=== PATIENT | female | born 1970 | race Two or more races ===

== ENCOUNTER 2017-05-16 09:45 | Inpatient (IN) | payer BC ==
--- NOTE | 2017-05-10 12:35 | RADRPT ---
PROCEDURE: XR Chest PA and Lateral CLINICAL INDICATION: Preop TECHNIQUE: PA and Lateral views of the chest were obtained. COMPARISON: None. FINDINGS: Cardiovascular: The cardiovascular silhouette appears unremarkable. Lung Spence: The lung spence appear clear with no nodule, alveolar infiltrate, or interstitial promi nence evident. Pleural Spaces: No pneumothorax is identified and no effusion is evident. Osseous Structures: There is a minimal dextroscoliotic curve to the thoracic spine. Soft Tissues: The soft tissues appear unremarkable. IMPRESSION: Unremarkable chest. Physician Ross Date Time Electronically viewed and signed by Physician Ross on 05/10/2017 12:34 RH/
[2017-05-15 09:49] VITALS: BMI 24.8
[~2017-05-16] VITALS: Ht 157.5 cm; Wt 63.6 kg
[2017-06-06 10:52] LABS: BASOPHILS % 0.4 % (0.0-2.0); EOSINOPHILS # 0.1 10^3/ul (0.0-0.5); EOSINOPHILS % 2.2 % (0.0-7.0); HEMATOCRIT 40.3 % (37.0-47.0); HEMOGLOBIN 12.8 g/dl (12.0-16.0); LYMPHOCYTES # 1.1 10^3/ul (0.8-2.9); MEAN CORPUSCULAR HEMOGLOBIN 30.4 pg (29.0-33.0); MEAN CORPUSCULAR HGB CONC 31.8 g/dl (32.0-37.0); MEAN CORPUSCULAR VOLUME 95.7 fl (82.0-101.0); MEAN PLATELET VOLUME 11.1 fl (7.4-10.4); MONOCYTE # 0.6 10^3/ul (0.3-0.9); MONOCYTES % 12.4 % (0.0-11.0); NEUTROPHIL # 3.2 10^3/ul (1.6-7.5); NEUTROPHILS % 63.6 % (39.0-77.0); PLATELET COUNT 195 10^3/UL (140-415); RED BLOOD COUNT 4.21 10^6/ul (4.20-5.40)
[2017-06-06 11:10] LABS: ALBUMIN 4.3 g/dl (3.3-4.9); ALBUMIN/GLOBULIN RATIO 1.53; BILIRUBIN,INDIRECT 0.3 mg/dl (0-1.1); BILIRUBIN,TOTAL 0.3 mg/dl (0.2-1.3); CALCIUM 9.4 mg/dl (8.4-10.2); CREATININE 0.91 mg/dl (0.44-1.00); POTASSIUM 3.7 mmol/L (3.5-5.1); TOTAL PROTEIN 7.1 g/dl (6.1-8.1)
[2017-06-06 11:52] LABS: INR 0.97; PROTIME 12.9 Sec (12.2-14.2)
[2017-06-06 11:53] LABS: PARTIAL THROMBOPLASTIN TIME 32.4 Sec (25.0-35.0)
[2017-06-06 12:31] VITALS: Ht 157.5 cm; Wt 63.6 kg
[2017-06-11] VITALS (20 sets, daily range): BP systolic 92–116; BP diastolic 52–75; PULSE 73–102; RESP 13–21
[2017-06-11] MEDS ORDERED: LACTATED RINGER'S 1,000 ML IV* SCH (06:00)
[2017-06-11] MEDS ORDERED: CEFAZOLIN 2 GM/50 ML (PMX) 50 ML IVPB SCH (06:00)
[2017-06-11] MEDS ORDERED: GABA300S PO (06:36)
[2017-06-11] MEDS ORDERED: LEVO0.5P MC (06:36)
[2017-06-11] MEDS ORDERED: [UNRECOGNIZED DRUG - CODE] PO (06:36)
[2017-06-11] MEDS ORDERED: LITH300T5 PO (06:36)
[2017-06-11] MEDS ORDERED: FENTAnyl 50 MCG/ML VIAL ONE ×2 (06:43→12:20)
[2017-06-11] MEDS ORDERED: ROCURONIUM 50 MG INJ ONE ×2 (06:43→10:52)
[2017-06-11] MEDS ORDERED: PROPOFOL 100 ML ONE ×3 (06:43→10:52)
[2017-06-11] MEDS ORDERED: MIDAZOLAM 1 MG/ML 2 ML INJ ONE (06:43)
--- NOTE | 2017-06-11 07:06 | HPN ---
Date/Time of Note Date/Time of Note DATE: 06/11/17 TIME: 07:06 Interval H&P Admission Note Pt. seen H&P reviewed: No system changes ARNOL HIRSCH MD Jun 11, 2017 07:06
[2017-06-11] MEDS ORDERED: CEFAZOLIN 1 GM INJ ONE ×2 (07:07→10:52)
[2017-06-11] MEDS ORDERED: THROMBIN 5000 UNIT VIAL ONE (07:08)
[2017-06-11] MEDS ORDERED: GELATIN SIZE 100 SPONGE ONE (07:08)
[2017-06-11] MEDS ORDERED: HEPARIN 1000 UNITS/ML 10 ML INJ ONE (07:08)
[2017-06-11] MEDS ORDERED: BUPIVACAINE 0.25% (MPF) 30 ML INJ ONE (07:08)
[2017-06-11] MEDS ORDERED: FUROSEMIDE 20 MG INJ ONE (07:09)
[2017-06-11] MEDS ORDERED: LABETALOL HCL 20MG INJ ONE ×2 (08:02→08:06)
[2017-06-11] MEDS ORDERED: hydrALAzine 20 MG INJ ONE (08:07)
[2017-06-11] MEDS ORDERED: PHENYLephrine (100 MCG/ML) 5ML SYG ONE ×2 (08:12→09:58)
[2017-06-11] MEDS ORDERED: ONDANSETRON 4 MG INJ ONE (09:58)
[2017-06-11] MEDS ORDERED: METOCLOPRAMIDE 10 MG INJ ONE (09:58)
[2017-06-11] MEDS ORDERED: DEXAMETHASONE 4 MG/ML 1 ML INJ ONE (09:58)
[2017-06-11] MEDS ORDERED: SUGAMMADEX SODIUM 200 MG/2 ML VIAL IV ONE (09:58)
[2017-06-11] MEDS ORDERED: LABETALOL HCL 20MG INJ IV PRN (10:00)
[2017-06-11] MEDS ORDERED: METOCLOPRAMIDE 10 MG INJ IV PRN (10:00)
[2017-06-11] MEDS ORDERED: HYDROmorphONE (0.2 MG/ML) 10ML SYG IV PRN ×2 (10:00)
[2017-06-11] MEDS ORDERED: EPHEDrine SULFATE 50 MG/5 ML SYG IV PRN (10:00)
[2017-06-11] MEDS ORDERED: FENTAnyl 50 MCG/ML VIAL IV PRN ×3 (10:00)
[2017-06-11] MEDS ORDERED: DIPHENHYDRAMINE 50 MG INJ IV PRN (10:00)
[2017-06-11] MEDS ORDERED: ONDANSETRON 4 MG INJ IV PRN (10:00)
[2017-06-11] MEDS ORDERED: MEPERIDINE 25 MG INJ IV PRN (10:00)
[2017-06-11] MEDS ORDERED: morphine (1 MG/ML) 10ML SYRINGE IV PRN ×3 (10:00)
--- NOTE | 2017-06-11 12:53 | RADRPT ---
PROCEDURE: Intraoperative imaging of the lumbar spine with fluoroscopy. CLINICAL INDICATION: Back pain. Intraoperative. TECHNIQUE: 6 images of the lumbar spine were obtained in the operating room with an image intensif ier. No radiologist was in attendance. Fluoroscopy time is 101.2 seconds. COMPARISON: No prior study is available for comparison. FINDINGS: For the purposes of this report, the last apparent true disc level is considered to be L5-S1. Based on this, images demonstrate posterior fusion with pedicle screws and connecting rods at L4-5. An in tervertebral cage is also present at L4-5. IMPRESSION: 1. Intraoperative imaging of the lumbar spine. RPTAT: QQ .Jason Zepeda MD, MD Date Time Electronically viewed and signed by .Jason Zepeda MD, on 06/11/2017 12:53 .R/
[2017-06-11] MEDS ORDERED: HYDROmorphONE 0.2 MG/ML PCA ONE (12:54)
[2017-06-11] MEDS: HYDROmorphONE (0.2 MG/ML) 10ML SYG IV PRN ×3 (12:58→13:12)
[2017-06-11] MEDS ORDERED: HYDROCODONE/APAP (5/325) TAB PO PRN ×2 (13:00)
[2017-06-11] MEDS ORDERED: DIAZEPAM 5 MG/ML SYG IM PRN (13:00)
[2017-06-11] MEDS ORDERED: NACL 0.9% 3 ML SYG IV SCH (13:00)
[2017-06-11] MEDS ORDERED: PROCHLORPERAZINE 10 MG TAB PO PRN (13:00)
[2017-06-11] MEDS ORDERED: CEPASTAT LOZENGE MT PRN (13:00)
[2017-06-11] MEDS ORDERED: ZOLPIDEM 5 MG TAB PO PRN (13:00)
[2017-06-11] MEDS ORDERED: ACETAMINOPHEN 325 MG TAB PO PRN (13:00)
[2017-06-11] MEDS ORDERED: BETHANECHOL 25 MG TAB PO PRN (13:00)
[2017-06-11] MEDS ORDERED: DIPHENHYDRAMINE 50 MG CAP PO PRN (13:00)
[2017-06-11] MEDS ORDERED: NALOXONE (0.4 MG/ML) INJ IV PRN (13:00)
[2017-06-11] MEDS ORDERED: TRIMETHOBENZAMIDE 100 MG/ML VIAL IM PRN (13:00)
[2017-06-11] MEDS ORDERED: AL HYDROX/MG HYDROX/SIMETH 30 ML CUP PO PRN (13:00)
[2017-06-11 13:02] LABS: ADD UMIC YES; UR ASCORBIC ACID NEGATIVE (NEGATIVE); UR BILIRUBIN (Dip) NEGATIVE (NEGATIVE); UR BLOOD (Dip) 1+ mg/dL (NEGATIVE); UR CLARITY CLEAR (CLEAR); UR COLOR COLORLESS (YELLOW); UR GLUCOSE (Dip) NEGATIVE (NEGATIVE); UR KETONES (Dip) NEGATIVE (NEGATIVE); UR LEUKOCYTE ESTERASE (Dip) NEGATIVE Leu/ul (NEGATIVE); UR NITRITE (Dip) NEGATIVE (NEGATIVE); UR RBC 1 /HPF (0-5); UR SPECIFIC GRAVITY (Dip) 1.011 (1.003-1.030); UR TOTAL PROTEIN (Dip) NEGATIVE (NEGATIVE); UR UROBILINOGEN (Dip) NEGATIVE (NEGATIVE)
--- NOTE | 2017-06-11 13:06 | SIPON ---
Date/Time of Note Date/Time of Note DATE: 06/11/17 TIME: 13:00 Operative Report Preoperative Diagnosis Spinal Stenosis L4-5 with intra spinal facet cysts Postoperative Diagnosis same Operation/Procedure Performed Central decompressive laminectomy at L4 Partial central decompressive laminectomy at L5 (superiorly) Transforaminal lumbar interbody fusion L4-5 with bilateral pedicle screws at L4 and L5 and an interbody cage Surgeon see signature line lead assistant manager Vince Shen Second assist: TREMAINE MCKEON Anesthesia: general Estimated blood loss: 150 - 200 ml's Transfusion Required 150 cc Cellsaver blood replaced Specimen Facet cysts Disk material L4-5 Grafts/Implants Local bone graft, MAPP3 10 mmm lordotic PEEK cage Bilateral pedicle screws and rods at L4 and L5 Complications none ARNOL HIRSCH MD Jun 11, 2017 13:06
[2017-06-11] MEDS: HYDROmorphONE 0.2 MG/ML PCA IV SCH (13:10)
--- NOTE | 2017-06-11 13:58 | OPR ---
DATE OF OPERATION: 06/11/2017 PREOPERATIVE DIAGNOSES: Severe spinal stenosis at L4 to 5 with intraspinal cyst and severe degenerative joint disease bilaterally. POSTOPERATIVE DIAGNOSES: Severe spinal stenosis at L4 to 5 with intraspinal cyst and severe degenerative joint disease bilaterally. OPERATION AND PROCEDURES: 1. Transforaminal lumbar interbody fusion L4 to 5. 2. Pedicle screw and rods bilaterally L4 to 5. 3. Central decompressive laminectomy at L4. 4. Partial central decompression laminectomy at L5 (superiorly). 5. Placement of interbody cage at L4 to 5 with local bone graft and Map3 synthetic bone graft substitute. 6. Cosmetic wound closure (7 cm). 7. AP and lateral intraoperative fluoroscopy. 8. Intraoperative nerve monitoring (4 hours). SURGEON: Buzz Weinstein MD NET COORDINATOR: Sebastian Marquez MD. SECOND NET COORDINATOR: Julisa Norton PA-C. ANESTHESIA: General endotracheal. ANESTHESIOLOGIST: Dr. Robert ESTIMATED BLOOD LOSS: 300 mL -- 150 mL of Cell Saver returned to the patient. COMPLICATIONS: None. PERTINENT HISTORY AND PHYSICAL: This is a 47-year-old female with severe back and bilateral leg pain, right greater than left which was unrelieved by conservative management. She has undergone a number of diagnostic studies including an MRI of the lumbar spine, which demonstrated severe stenosis at L4 to 5 secondary to intraspinal cyst at that level along with bilateral degenerative facet disease at that level. Treatment options were discussed with the patient, she elected to proceed with surgery. OPERATIVE FINDINGS AT SURGERY: Multiple intraspinal cysts were confirmed. Baseline intraoperative nerve monitoring revealed a decrease in the L4 potential on the left of 20%, the L4 potential on the right of 50%, the L5 potentials bilaterally of 40%. These all returned to normal at the completion of surgery. OPERATIVE PROCEDURE: With the patient in supine position after satisfactory induction of general endotracheal anesthesia by Dr. Robert, the patient was turned to the prone position onto the radiolucent Frederick frame atop the OSI fluoroscopic table. All pressure points were carefully padded. The back was prepped and draped in usual sterile fashion. Athrombic pumps were applied to the legs below the knees to prevent venous stasis during and after the procedure. An indwelling Rodriguez catheter was also placed preoperatively to facilitate bladder drainage during and after the surgery. Two spinal needles were placed next to what was felt to be the L4 and L5 spinous processes, lateral roentgenogram was taken which confirmed anatomic localization. A 7-cm incision was carried out midline from L3 to L5 through skin and subcutaneous tissue to deep fascia after skin was infiltrated with 0.25% Marcaine without epinephrine for postoperative analgesia. Superficial retractors were placed and hemostasis secured with electrocautery. Throughout the procedure, copious amounts of antibacterial irrigating solution used to periodically irrigate the wound. The fascia was incised in midline with a hot knife and a bilateral subperiosteal dissection carried out at L4 and L5. Deep retractors were placed and deep hemostasis secured with electrocautery. A second intraoperative radiograph was taken with Tha clamps placed in what was felt to be the spinous process of L3 and L4. This was confirmed with second x-ray. A central decompressive laminectomy at L4 was then carried out using a Zachery right- angle bone rongeur, Leksell rongeur, Kerrison punches and curettes. Ligamentum flavum was incised with sharp dissection. The operating microscope was then moved into place. A subtotal medial facetectomy at L4 to 5 bilaterally was carried out with a small hand osteotome, mallet, Kerrison punches and curettes. The L5 root on the right was then mobilized medially and protected with Charlee' Ramila nerve retractor using microdissection technique. A 15 blade knife used to cut a rectangular window in the annulus and posterior longitudinal ligament and multiple degenerative disk fragments were harvested with pituitary rongeurs and sent to laboratory for pathologic study. Additional fragments were harvested using ring curettes and Ariella curettes. A thorough search of the floor of the canal was made with an arthroscopic probe. No additional fragments were encountered. The 7, 8, 9 10 and 11 mm reamers were then inserted into the disk space and additional disk material was removed. The 10- mm trial appeared to be the correct trial for this disk space after trying the 6 , 7, 8 and 9 mm. A 10 mm lordotic PEEK cage was then filled with Map3 bone graft substitute and inserted into the L4 to 5 disk space after multiple morselized fragments of bone from the facet joint and spinous process were packed into the anterior aspect of the disk space. The position of the cage was confirmed on AP and lateral fluoroscopic imaging. With this having been accomplished, the pedicle screws were then placed at L4 and L5 bilaterally in the usual fashion using Lenke probe and AP and lateral fluoroscopic guidance. All 4 screws were 5.5 mm wide x 40 mm long variable angle RTI screws. They were then connected with 50 mm lordotic rods and secured with the factory torque wrench. Prior to final tightening of the L4 locking caps, the construct was put under compression bilaterally. Final AP and lateral fluoroscopic images were taken, which confirmed appropriate positioning of the hardware and interbody cage. Prior to placement of the lordotic rods, each of the screws was tested for electrical isolation to 20 microamps of current. The epidural hemostasis was secured with bipolar electrocautery on low setting. The anesthesiologist then asked to perform a Valsalva maneuver at 40 mmHg and no spinal fluid leakage was noted. The wound was then closed in layers over 2 medium Hemovac drains, one below the fascia and one above the fascia using #1 Vicryl Stratafix sutures in deep paralumbar musculature and deep fascia of the back, 2-0 Stratafix sutures in subQ tissue and a 4-0 Vicryl subcuticular cosmetic closing suture on the skin. Dermabond and sterile compressive dressings were applied. The patient having tolerated procedure well, was then turned to the supine position onto her bed and extubated by Dr. Robert. She was transported to recovery room in satisfactory condition. At the conclusion of the procedure, sponge, instrument and needle counts were all correct. NEED FOR CAR STORER: During this spinal surgical procedure, my culture media laboratory assistant was used to retract and protect the spinal nerves and dural sac. My culture media laboratory assistant also employed the suction catheters to evacuate blood from the surgical field to improve visualization of the neural structures. The culture media laboratory assistant was medically necessary to facilitate the completion of the surgery in a safe and expeditious manner. State of [place] regulations, as well as hospital bylaws, preclude the use of non-licensed health care personnel such as operating room technicians, to perform these functions. Throughout the procedure, neural monitoring was carried out by Partly including EMG, SSEP and MEP monitoring of the L3, L4 , L5 and S1 nerve roots bilaterally along with spinal cord potentials. These were interpreted by a neurologist employed by [employer] Dictated By: BUZZ HADDAD/MARLENE Conf#: [id number] [facility]#: [id number] CC: JENNIFER PANDEY MD; SEBASTIAN MARQUEZ MD;*EndCC* MTDD
[2017-06-11] MEDS: DEXTROSE 5%-0.45% NACL 1,000 ML IV SCH ×2 (14:04→23:08)
[2017-06-11] MEDS: DIAZEPAM 5 MG TAB PO PRN (16:08)
--- NOTE | 2017-06-11 17:07 | CONS ---
DATE OF ADMISSION: 06/11/2017 DATE OF CONSULTATION: 06/11/2017 POSTOPERATIVE INTERNAL MEDICINE CONSULTATION REASON FOR CONSULTATION: Consultation requested by Dr. Buzz Hirsch for medical evaluation and followup of a 47-year-old woman who just underwent lumbar spine surgery. Thank you, Dr. Hirsch, for allowing us to participate in the care of this patient. HISTORY OF PRESENT ILLNESS: Lisa Mattson, a 47-year-old woman. This will be her first major surgery, had breast augmentation in the past; however, other than that has had no surgical procedures. Of note, has been generally healthy. MEDICATIONS: Currently taking the followin. Gabapentin 300 b.i.d. 2. [place] carbonate 300 mg b.i.d. 3. Quetiapine fumarate 400 mg extended release 24 hours before dinner. 4. Levothyroxine 75 mcg per day. ALLERGIES: SHE IS NOT ALLERGIC TO ANY MEDICATIONS. General health is described as being good. SOCIAL HISTORY: The patient is , has no children. FAMILY HISTORY: Knows of no significant family history of diabetes, cancer, heart disease, etc. REVIEW OF SYSTEMS: HEENT: Unremarkable. CARDIORESPIRATORY: No chest pain or shortness breath. GASTROINTESTINAL: No melena, hematemesis. GENITOURINARY: No urgency, frequency. MUSCULOSKELETAL: Positive for back pain, spinal stenosis for which she has had recurrent surgery. PHYSICAL EXAMINATION: VITAL SIGNS: Postoperatively revealed blood pressure 116/59, pulse 98 and regular, respirations 20, temperature 97.7 and O2 sat 96% on room air. HEENT: Unremarkable. LUNGS: Clear. HEART: Reveals regular exam. ABDOMEN: Soft, good bowel sounds were noted. EXTREMITIES: Unremarkable. IMPRESSION: 1. Status post lumbar spine surgery. 2. Hypothyroidism. 3. Stable health. DISCUSSION: The patient's vital signs and postop, patient is quite alert, was seen in her room after she was transferred to the floor. No complaints at this particular point in time, as far as the patient is concerned. Plan is to follow her along with you and monitor her general medical conditions, her preop medicines have been reinitiated. Thank you again, Dr. Hirsch, for allowing us to participate in the care of this patient. Dictated By: JENNIFER JOYNER/MARLENE Conf#: [id number] DID#: [id number] CC: BUZZ HIRSCH MD;*EndCC* MTDD
[2017-06-11] MEDS: CEFAZOLIN 1 GM/50 ML (PMX) 50 ML IVPB SCH ×2 (17:33→23:08)
[2017-06-11] MEDS: ONDANSETRON 4 MG INJ IV PRN (18:54)
[2017-06-11] MEDS: LITHIUM CARBONATE 300 MG CAP PO SCH ×2 (20:12→21:20)
[2017-06-11] MEDS: QUETIAPINE 400 MG XX SCH ×2 (20:13→21:20)
[2017-06-11] MEDS: GABAPENTIN 100 MG CAP PO SCH (21:20)
[2017-06-11] MEDS: RANITIDINE 150 MG TAB PO SCH (21:20)
[2017-06-12 00:34] VITALS: BP 108/59; RESP 18
[2017-06-12] MEDS: HYDROmorphONE 0.2 MG/ML PCA IV SCH (01:04)
[2017-06-12 01:59] VITALS: BP 104/70; RESP 20
[2017-06-12 05:25] LABS: HEMOGLOBIN 9.1 g/dl (12.0-16.0)
[2017-06-12] MEDS: CEFAZOLIN 1 GM/50 ML (PMX) 50 ML IVPB SCH ×2 (05:45→12:00)
[2017-06-12 05:56] VITALS: BP 101/64; PULSE 82; RESP 17
[2017-06-12] MEDS ORDERED: LEVOTHYROXINE 75 MCG TAB PO SCH (06:00)
[2017-06-12 06:08] LABS: CALCIUM 8.3 mg/dl (8.4-10.2); CREATININE 0.67 mg/dl (0.44-1.00); POTASSIUM 3.9 mmol/L (3.5-5.1)
--- NOTE | 2017-06-12 07:16 | PN ---
Date/Time of Note Date/Time of Note DATE: 06/12/17 TIME: 07:12 Assessment/Plan Lines/Catheters IV Catheter Type (from Nrsg): Peripheral IV Rodriguez in Place (from Nrsg): Yes Subjective 24 Hr Interval Summary Patient is postop day #1 from lumbar decompression and fusion at L4-5. She is resting comfortably in bed, she has been up ambulating. Pain is well controlled. Vital signs are stable, her hemoglobin this morning is 9.1. Neurovascular structures are intact distally. Her Hemovac drain overnight was 80 cc and this will be monitored. 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 We will switch her over to pills for pain control. Exam/Review of Systems Vital Signs Vitals Vital Signs Date Time Temp Pulse Resp B/P Pulse Ox O2 Delivery O2 Flow Rate FiO2 06/12/17 05:56 98.9 82 17 101/64 95 Nasal Cannula 2.0 Intake and Output 06/11/17 06/11/17 06/12/17 15:00 23:00 07:00 Intake Total 2350 ml 350 ml 1900 ml Output Total 1380 ml 160 ml 2580 ml Balance 970 ml 190 ml -680 ml Results Result Diagram: 06/12/17 0447 06/12/17 0447 TREMAINE MCKEON Jun 12, 2017 07:15
[2017-06-12] MEDS: DIAZEPAM 5 MG TAB PO PRN (07:21)
[2017-06-12] MEDS ORDERED: OXYCODONE/ACETAMINOPHEN (10/325) TAB PO PRN (07:30)
[2017-06-12] MEDS ORDERED: BETHANECHOL 25 MG TAB PO PRN (08:00)
--- NOTE | 2017-06-12 08:06 | CONS ---
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 not holding her Objective Vital Signs Date Time Temp Pulse Resp B/P Pulse Ox O2 Delivery O2 Flow Rate FiO2 06/12/17 05:56 98.9 82 17 101/64 95 Nasal Cannula 2.0 Intake and Output 06/11/17 06/11/17 06/12/17 15:00 23:00 07:00 Intake Total 2350 ml 350 ml 1900 ml Output Total 1380 ml 160 ml 2580 ml Balance 970 ml 190 ml -680 ml Exam vss heent negative heart regular rhythm abdomen soft Results/Medications Result Diagram: 06/12/17 0447 06/12/17 0447 Results 24 hrs Laboratory Tests Test 06/12/17 04:47 Hemoglobin 9.1 #L Hematocrit 28.0 #L Sodium Level 140 Potassium Level 3.9 Chloride Level 108 Carbon Dioxide Level 27 Anion Gap 9 Blood Urea Nitrogen 6 L Creatinine 0.67 Glucose Level 132 Calcium Level 8.3 L Medications Current Medications Dextrose/Sodium Chloride 1,000 ml @ 100 mls/hr Q10H IV Last administered on 23:08; Admin Dose 100 MLS/HR; Start 06/11/17 at 12:56 Cefazolin Sodium (Ancef 1 Gm/50 ml (Pmx)) 50 ml @ 100 mls/hr Q6 IVPB Last administered on 06/12/17 05:45; Admin Dose 100 MLS/HR; Start 06/11/17 at 18: 00; Stop 06/12/17 at 12:29 Zolpidem Tartrate (Ambien) 5 mg HS PRN PO INSOMNIA; Start 06/11/17 at 13:00 Prochlorperazine (Compazine) 10 mg Q4H PRN PO NAUSEA AND/OR VOMITING; Start at 13:00 Trimethobenzamide HCl (Tigan) 200 mg Q4H PRN IM NAUSEA AND/OR VOMITING Last administered on 06/11/17 22:40; Admin Dose 200 MG; Start 06/11/17 at 13:00 Ondansetron HCl (Zofran Inj) 4 mg Q6H PRN IV NAUSEA AND/OR VOMITING Last administered on 06/11/17 18:54; Admin Dose 4 MG; Start 06/11/17 at 13:00 Al Hydrox/Mg Hydrox/Simethicone (Mag-Al Plus) 15 ml Q4H PRN PO CONSTIPATION; Start 06/11/17 at 13:00 Docusate Sodium (Colace) 100 mg BID PO ; Start 06/12/17 at 09:00 Acetaminophen (Tylenol Tab) 650 mg Q4H PRN PO TEMP GREATER THAN 101F OR URIOSTEGUI; Start 06/11/17 at 13:00 Ascorbic Acid (Vitamin C) 1,000 mg BID PO ; Start 06/12/17 at 09:00 Ferrous Sulfate (Ferrous Sulfate (Ec)) 325 mg TID PO ; Start 06/12/17 at 09:00 Ranitidine HCl (Zantac) 150 mg BID PO Last administered on 06/11/17 21:20; Admin Dose 150 MG; Start 06/11/17 at 21:00 Diazepam (Valium) 5 mg Q4H PRN PO MUSCLE SPASMS Last administered on 07:21; Admin Dose 5 MG; Start 06/11/17 at 13:00 Diazepam (Valium) 5 mg Q4H PRN IM MUSCLE SPASMS; Start 06/11/17 at 13:00 Phenol (Cepastat Lozenge) 1 lozenge PRN PRN MT SORE THROAT Last administered on 06/12/17 05:57; Admin Dose 1 LOZENGE; Start 06/11/17 at 13:00 Bethanechol Chloride (Urecholine) 25 mg PRN PRN PO UNABLE TO VOID; Start 06/11 at 13:00 Diphenhydramine HCl (Benadryl) 50 mg Q6H PRN PO PRURITUS; Start 06/11/17 at 13 :00 Hydromorphone HCl (Dilaudid WIRE STEWARD) Q4PCA IV Last administered on 06/12/17 01: 04; Admin Dose 6 MG; Start 06/11/17 at 13:00 Naloxone HCl (Narcan) 0.2 mg Q2M PRN IV RR 8 BREATHS/MIN OR LESS; Start at 13:00 Pe Ell Carbonate (Pe Ell Carbonate) 300 mg BID PO Last administered on 21:20; Admin Dose 300 MG; Start 06/11/17 at 21:00 Gabapentin (Neurontin) 100 mg BID PO Last administered on 06/11/17 21:20; Admin Dose 100 MG; Start 06/11/17 at 21:00 Levothyroxine Sodium (Synthroid) 75 mcg DAILY@06 PO Last administered on 05:45; Admin Dose 75 MCG; Start 06/12/17 at 06:00 Bethanechol Chloride (Urecholine) 25 mg PRN PRN PO UNABLE TO VOID; Start 06/12 at 08:00 Oxycodone/ Acetaminophen (Endocet (10/ 325)) 1 tab Q4H PRN PO PAIN LEVEL 1-5; Start 06/12/17 at 07:30 Oxycodone/ Acetaminophen (Endocet (10/ 325)) 2 tab Q4H PRN PO PAIN LEVEL 6-10; Start 06/12/17 at 07:30 Assessment/Plan Chief Complaint/Hosp Course back pain post op,awaiting switch emeli medicine otherwise stable Problems: Additional Assessment/Plan plan activityt per gosia re aqctivity etc. continue current medical rx will follow thank you JENNIFER Valadez MD Jun 12, 2017 08:06
[2017-06-12] MEDS: OXYCODONE/ACETAMINOPHEN (10/325) TAB PO PRN ×2 (08:12→12:12)
[2017-06-12 08:19] VITALS: BP 99/60; RESP 17
[2017-06-12] MEDS: DEXTROSE 5%-0.45% NACL 1,000 ML IV SCH (08:56)
[2017-06-12] MEDS ORDERED: DOCUSATE SODIUM 100 MG CAP PO SCH (09:00)
[2017-06-12] MEDS ORDERED: ASCORBIC ACID 500 MG TAB PO SCH (09:00)
[2017-06-12] MEDS: ONDANSETRON 4 MG INJ IV PRN (10:37)
[2017-06-12] MEDS: FERROUS SULFATE (EC) 325 MG TAB PO SCH ×2 (10:38→12:12)
[2017-06-12] MEDS: RANITIDINE 150 MG TAB PO SCH (10:39)
[2017-06-12] MEDS: GABAPENTIN 100 MG CAP PO SCH (10:39)
[2017-06-12] MEDS: LITHIUM CARBONATE 300 MG CAP PO SCH (10:59)
[2017-06-12 14:39] LABS: ADD UMIC NO; UR ASCORBIC ACID NEGATIVE (NEGATIVE); UR BILIRUBIN (Dip) NEGATIVE (NEGATIVE); UR BLOOD (Dip) NEGATIVE (NEGATIVE); UR CLARITY CLEAR (CLEAR); UR COLOR YELLOW (YELLOW); UR GLUCOSE (Dip) NEGATIVE (NEGATIVE); UR KETONES (Dip) NEGATIVE (NEGATIVE); UR LEUKOCYTE ESTERASE (Dip) NEGATIVE Leu/ul (NEGATIVE); UR NITRITE (Dip) NEGATIVE (NEGATIVE); UR SPECIFIC GRAVITY (Dip) 1.012 (1.003-1.030); UR TOTAL PROTEIN (Dip) NEGATIVE (NEGATIVE); UR UROBILINOGEN (Dip) NEGATIVE (NEGATIVE)
[2017-06-12] MEDS ORDERED: INFLUENZA VIRUS VACCINE 0.5 ML SYG IM* ONE (16:00)
== END 2017-06-12 14:42 | disposition home or self-care (01) | DRG 460 ==
LOC: REC 06-11 05:44 → MS1 06-11 13:38
PROVIDERS: ADMIT Orthopaedic Surgery; ATTEND Orthopaedic Surgery
PROC: 30233H0 Transfusion of Autologous Whole Blood into Peripheral Vein, Percutaneous Approach (ICD-10-PCS; 2017-06-11)
PROC: 0SG00AJ Fusion of Lumbar Vertebral Joint with Interbody Fusion Device, Posterior Approach, Anterior Column, Open Approach (ICD-10-PCS; principal; 2017-06-11 07:00)
DX: M48.061 Spinal stenosis, lumbar region without neurogenic claudication (principal); E03.9 Hypothyroidism, unspecified; M47.9 Spondylosis, unspecified; M85.68 Other cyst of bone, other site
CPT/HCPCS: 71020; 72110; 80048; 80053; 81001; 81003; 84703; 85014; 85018; 85025; 85610; 85651; 85730; 86850; 86900; 86901; 86920; 87086; 90686; 97116; 97162; 97530; J1940; C1713; J0360; J0690; J1100; J1170; J1644; J2175; J2250; J2370; J2405; J2765; J3010; J3250; J7042; J7120

== ENCOUNTER → 2018-04-05 | Outpatient (CLI) | END | disposition home or self-care (01) ==